=== PATIENT | male | born 1945 | race Caucasian/White ===

== ENCOUNTER → 2019-05-29 10:11 | Outpatient (BNVA) | payer OTHER, SELFPAY | PROVIDERS: Visit Provider Family Medicine | DX: I25.10 Atherosclerotic heart disease of native coronary artery without angina pectoris (principal); E03.9 Hypothyroidism, unspecified; N40.1 Benign prostatic hyperplasia with lower urinary tract symptoms; R39.11 Hesitancy of micturition; Z12.5 Encounter for screening for malignant neoplasm of prostate; I10 Essential (primary) hypertension; I63.89 Other cerebral infarction | CPT/HCPCS: 80061; 84153; 84439; 84443; 84481 ==

== ENCOUNTER → 2020-01-23 10:12 | Outpatient (BNVA) | payer OTHER, SELFPAY | PROVIDERS: Visit Provider Family Medicine | DX: I10 Essential (primary) hypertension (principal); N40.0 Benign prostatic hyperplasia without lower urinary tract symptoms; I25.10 Atherosclerotic heart disease of native coronary artery without angina pectoris; N40.1 Benign prostatic hyperplasia with lower urinary tract symptoms; E03.9 Hypothyroidism, unspecified; R39.11 Hesitancy of micturition | CPT/HCPCS: 80053; 84439; 84443; 84481 ==

== ENCOUNTER → 2020-09-18 11:53 | Outpatient (BNVA) | payer OTHER, SELFPAY | PROVIDERS: Visit Provider Family Medicine | DX: I10 Essential (primary) hypertension (principal); N40.0 Benign prostatic hyperplasia without lower urinary tract symptoms; I25.10 Atherosclerotic heart disease of native coronary artery without angina pectoris; I63.9 Cerebral infarction, unspecified; E03.9 Hypothyroidism, unspecified; N40.1 Benign prostatic hyperplasia with lower urinary tract symptoms; R39.11 Hesitancy of micturition | CPT/HCPCS: 80053; 80061; 84153; 84439; 84443; 84481 ==

== ENCOUNTER 2021-02-21 13:13 | Outpatient (CLI) | payer MEDICARE, OTHER, SELFPAY ==
--- NOTE | 2021-02-21 13:30 | USCV_ITS ---
Juan Manuel Sol Age: 75 Gender: M : 1945 Exam Date: 02/21/2021 13:28 Ordering Phys: Yarelis Hollingsworth MD ([email or web address]) Technologist: MELISSA [place]am [place] [facility] [place]: hx CVA 2004 (right hemiparesis). hx LEFT carotid stenting 2004. No DM. Never smoked. Risk Factors: hx CVA 2004 (right hemiparesis). hx LEFT carotid stenting 2004. No DM. Never smoked. Previous Vascular Surgery: hx LEFT carotid stenting 2004. Right Brachial BP: / Left Brachial BP: / Right Left Velocity (cm/s) Spectral Plaque Velocity (cm/s) Spectral Plaque Syst/Diast Broadening Syst/Diast Broadening 62.10/ 10.10 Min Homo Prox CCA 64.10 / 10.30 Min Homo 62.90/ 10.90 Min Homo Mid CCA 56.60 / 11.70 Min Hetro 66.00/ 9.30 Min Homo Distal CCA 36.80 / 11.20 Min STENT 82.00/ 19.70 Mod Homo Prox ICA 101.40/ 20.90 Mod STENT 70.90/ 21.40 Min Homo Mid ICA 95.90 / 15.40 Min Homo 56.80/ 17.00 Min Homo Distal ICA 76.10 / 17.60 Min Homo 136.70 Min Homo ECA 149.10 Mod Hetro 1.24 ICA/CCA 1.58 Antegrade Vertebral Antegrade 35.50/ 7.80 cm/s 53.00/ 12.00 cm/s Tri Subclavian Tri 81.20 76.90 FINDINGS Mild to moderate plaques of the left bifurcation. The stent in the proximal to mid segment of the artery appears to be patent with normal Doppler flow velocities. Mild to moderate plaques of the right bifurcation. Intimal thickening and scattered minimal plaques in the common carotid arteries bilaterally. Anterior flow in the vertebral arteries bilaterally. Myra/near normal Doppler flow velocities in the external carotid and subclavian arteries bilaterally CONCLUSIONS Mild to moderate plaques of the left bifurcation. The stent in the proximal to mid segment of the artery appears to be patent with normal Doppler flow velocities. Features suggesting less than 50% stenosis Mild to moderate plaques of the right bifurcation, suggesting less than 50% stenosis. No significant stenosis in the external carotid, vertebral or subclavian arteries, based on the Doppler velocities. No similar previous studies are available for comparison Dr Chris Chambers MD [facility] (Electronically Signed) Final Date: 24 February 2021 12:53 S
== END 2021-02-21 13:14 | disposition home or self-care (01) ==
LOC: RAD 13:15
PROVIDERS: PCP Family Medicine; Visit Provider Internal Medicine Cardiovascular Disease
DX: Z95.828 Presence of other vascular implants and grafts (principal); R55 Syncope and collapse; I63.89 Other cerebral infarction; I65.23 Occlusion and stenosis of bilateral carotid arteries
CPT/HCPCS: 93880

== ENCOUNTER → 2021-04-10 11:01 | Outpatient (BNVA) | payer MEDICARE, SELFPAY | PROVIDERS: PCP Family Medicine; Visit Provider Family Medicine | DX: I10 Essential (primary) hypertension (principal); I25.10 Atherosclerotic heart disease of native coronary artery without angina pectoris; N40.0 Benign prostatic hyperplasia without lower urinary tract symptoms; E03.9 Hypothyroidism, unspecified; E78.1 Pure hyperglyceridemia; Z12.5 Encounter for screening for malignant neoplasm of prostate; N40.1 Benign prostatic hyperplasia with lower urinary tract symptoms; R39.11 Hesitancy of micturition | CPT/HCPCS: 80053; 80061; 84153; 84439; 84443; 84481 ==

== ENCOUNTER → 2021-06-23 14:28 | Outpatient (BNVA) | payer MEDICARE, SELFPAY | PROVIDERS: PCP Family Medicine; Visit Provider Nurse Practitioner Family | DX: I25.10 Atherosclerotic heart disease of native coronary artery without angina pectoris (principal); I10 Essential (primary) hypertension; R00.1 Bradycardia, unspecified; Z95.5 Presence of coronary angioplasty implant and graft | CPT/HCPCS: 99214 ==

== ENCOUNTER → 2022-01-08 10:05 | Outpatient (BNVA) | payer MEDICARE, SELFPAY | PROVIDERS: PCP Family Medicine; Visit Provider Family Medicine | DX: C44.209 Unspecified malignant neoplasm of skin of left ear and external auricular canal (principal) | CPT/HCPCS: 88304 ==

== ENCOUNTER → 2022-01-09 09:09 | Outpatient (BNVA) | payer MEDICARE, SELFPAY | PROVIDERS: PCP Family Medicine; Visit Provider Internal Medicine Cardiovascular Disease | DX: I10 Essential (primary) hypertension (principal); E78.1 Pure hyperglyceridemia; Z95.828 Presence of other vascular implants and grafts; E03.9 Hypothyroidism, unspecified; Z86.73 Personal history of transient ischemic attack (TIA), and cerebral infarction without residual deficits | CPT/HCPCS: 99214 ==

== ENCOUNTER 2022-03-12 17:01 | Outpatient (CLI) | payer MEDICARE, SELFPAY ==
--- NOTE | 2022-03-12 17:15 | USCV_ITS ---
Juan Manuel Sol Age: 76 Gender: M : 1945 Exam Date: 03/12/2022 17:13 Ordering Phys: Yarelis Hollingsworth MD ([email or web address]) Technologist: EVA [place] [facility] [place]: Stenosis Risk Factors: Previous Vascular Surgery: Right Brachial BP: / Left Brachial BP: / Right Left Velocity (cm/s) Spectral Plaque Velocity (cm/s) Spectral Plaque Syst/Diast Broadening Syst/Diast Broadening 59.20/ 12.50 Prox CCA 67.70 / 15.80 65.70/ 17.10 Mid CCA 57.80 / 15.80 61.10/ 13.80 Distal CCA 44.30 / 17.10 67.50/ 18.40 Prox ICA 60.60 / 8.50 90.10/ 21.80 Mid ICA 105.80/ 15.40 83.90/ 20.20 Distal ICA 86.30 / 16.20 133.40 ECA 91.40 1.37 ICA/CCA 1.56 Vertebral 34.00/ 10.30 cm/s 52.80/ 11.50 cm/s Subclavian 78.90 125.7 0 FINDINGS Comparison:. 02/21/21. Mild scattered calcified plaque and intimal thickening throughout the common carotid arteries and extending through the bifurcation. Left ICA stent is patent. No progression of stenosis or plaque. Antegrade vertebral arteries. CONCLUSIONS Bilateral ICA stenosis less than 50%. Mild scattered atherosclerotic plaque. Patent left ICA stent. Dr. Azalia Hernandez DO (Electronically Signed) Final Date: 13 March 2022 07:42 S
== END 2022-03-12 17:02 | disposition home or self-care (01) ==
LOC: RAD 17:02
PROVIDERS: PCP Family Medicine; Visit Provider Internal Medicine Cardiovascular Disease
DX: I65.23 Occlusion and stenosis of bilateral carotid arteries (principal); I63.89 Other cerebral infarction; Z95.5 Presence of coronary angioplasty implant and graft
CPT/HCPCS: 93880

== ENCOUNTER → 2022-03-16 09:45 | Outpatient (BNVA) | payer MEDICARE, SELFPAY | PROVIDERS: PCP Family Medicine; Visit Provider Family Medicine | DX: I10 Essential (primary) hypertension (principal); I25.10 Atherosclerotic heart disease of native coronary artery without angina pectoris; I63.9 Cerebral infarction, unspecified; N40.0 Benign prostatic hyperplasia without lower urinary tract symptoms; E03.9 Hypothyroidism, unspecified; E78.1 Pure hyperglyceridemia; Z12.5 Encounter for screening for malignant neoplasm of prostate; R73.9 Hyperglycemia, unspecified; Z13.1 Encounter for screening for diabetes mellitus; N40.1 Benign prostatic hyperplasia with lower urinary tract symptoms; R39.11 Hesitancy of micturition | CPT/HCPCS: 80053; 80061; 83036; 84443; G0103 ==

== ENCOUNTER → 2022-05-25 14:40 | Outpatient (BNVA) | payer MEDICARE, SELFPAY | PROVIDERS: PCP Family Medicine; Visit Provider Family Medicine | DX: M25.521 Pain in right elbow (principal) | CPT/HCPCS: 73080 ==

== ENCOUNTER → 2022-10-09 08:00 | Outpatient (BNVA) | payer MEDICARE, SELFPAY | PROVIDERS: PCP Family Medicine; Visit Provider Nurse Practitioner Family | DX: L57.0 Actinic keratosis (principal); D22.5 Melanocytic nevi of trunk; L81.4 Other melanin hyperpigmentation; L57.8 Other skin changes due to chronic exposure to nonionizing radiation; Z85.828 Personal history of other malignant neoplasm of skin | CPT/HCPCS: 17000; 17003; 99213 ==

== ENCOUNTER → 2023-03-25 12:17 | Outpatient (BNVA) | payer MEDICARE, SELFPAY | PROVIDERS: PCP Family Medicine; Visit Provider Internal Medicine Cardiovascular Disease | DX: I25.10 Atherosclerotic heart disease of native coronary artery without angina pectoris (principal); I10 Essential (primary) hypertension; R00.1 Bradycardia, unspecified; E78.1 Pure hyperglyceridemia; Z95.828 Presence of other vascular implants and grafts; Z86.73 Personal history of transient ischemic attack (TIA), and cerebral infarction without residual deficits | CPT/HCPCS: 99214 ==

== ENCOUNTER → 2023-03-30 09:58 | Outpatient (BNVA) | payer MEDICARE, SELFPAY | PROVIDERS: PCP Family Medicine; Visit Provider Family Medicine | DX: I10 Essential (primary) hypertension (principal); N40.0 Benign prostatic hyperplasia without lower urinary tract symptoms; E03.9 Hypothyroidism, unspecified; N40.1 Benign prostatic hyperplasia with lower urinary tract symptoms; R39.11 Hesitancy of micturition; Z12.5 Encounter for screening for malignant neoplasm of prostate | CPT/HCPCS: 80053; 80061; 83721; 84153; 84443 ==

== ENCOUNTER → 2024-03-02 10:16 | Outpatient (BNVA) | payer MEDICARE, SELFPAY | PROVIDERS: PCP Family Medicine; Visit Provider Family Medicine | DX: I10 Essential (primary) hypertension (principal); I25.10 Atherosclerotic heart disease of native coronary artery without angina pectoris; E03.9 Hypothyroidism, unspecified | CPT/HCPCS: 80053; 80061; 84443 ==

== ENCOUNTER → 2024-03-23 15:15 | Outpatient (BNVA) | payer MEDICARE, SELFPAY | PROVIDERS: PCP Family Medicine; Visit Provider Internal Medicine Cardiovascular Disease | DX: R01.1 Cardiac murmur, unspecified (principal); I10 Essential (primary) hypertension; Z95.828 Presence of other vascular implants and grafts | CPT/HCPCS: 99204 ==

== ENCOUNTER → 2024-04-25 09:08 | Outpatient (BNVA) | payer MEDICARE, SELFPAY | PROVIDERS: PCP Family Medicine; Visit Provider Family Medicine | DX: Z13.1 Encounter for screening for diabetes mellitus (principal); R73.9 Hyperglycemia, unspecified | CPT/HCPCS: 83036 ==

== ENCOUNTER 2024-05-16 08:26 | Outpatient (CLI) | payer MEDICARE, SELFPAY ==
--- NOTE | 2024-05-16 13:30 | USCV_ITS ---
Juan Manuel Sol Age: 78 Gender: M : 1945 Exam Date: 05/16/2024 08:55 Ordering Phys: Lorenzo Mcdonough MD ([email or web address]) Technologist: Exam Location: [facility] – [place] Indication: mumur cp BP: 130 / 70 HR: 79 Rhythm: Sinus Technical Quality: Adequate MEASUREMENTS (Male / Female) Normal Values 2D ECHO LV Diastolic Diameter PLAX 4.0 cm 4.2 - 5.9 / 3.9 - 5.3 cm IVS Diastolic Thickness 1.3 cm 0.6 - 1.0 / 0.6 - 0.9 cm IVS Systolic Thickness 1.6 cm LVPW Diastolic Thickness 1.3 cm 0.6 - 1.0 / 0.6 - 0.9 cm LVPW Systolic Thickness 1.5 cm LVOT Diameter 2.1 cm LV Ejection Fraction 2D Teich 64.6 % LV Ejection Fraction MOD 4C 75.6 % LV Ejection Fraction MOD 2C 67.2 % LV Ejection Fraction 2C AL 69.9 % LA Diameter 3.3 cm RA Systolic Volume 4C AL 32.6 ml RA Systolic Volume 4C MOD 31.9 ml LA Sys Volume AL 38.0 cm cubed LA Sys Volume Index AL 19.5 cm cubed/m squared Aorta at Sinotubular Diameter 3.3 cm IVC Diameter 1.9 cm M-MODE LA Ao Ratio MM 1.4 AV Cusp Separation MM 0.9 cm DOPPLER AV Peak Velocity 269.0 cm/s LVOT Peak Velocity 82.0 cm/s AV Area Cont Eq vti 1.1 cm squared AV Area Cont Eq pk 1.0 cm squared MV Peak Velocity 126.0 cm/s MV Area PHT 2.8 cm squared Mitral E to A Ratio 0.7 TV Peak Velocity 225.0 cm/s TR Peak Velocity 265.0 cm/s TR Peak Gradient 28.1 mmHg TV Peak E Velocity 90.0 cm/s PV Peak Velocity 165.0 cm/s FINDINGS Left Ventricle Normal left ventricular size, systolic function and wall thickness, with no regional wall motion abnormalities. Left ventricular ejection fraction is estimated at 60 %. Grade I/IV diastolic dysfunction (abnormal relaxation filling pattern), normal to mildly elevated filling pressures. Right Ventricle The right ventricle is normal in size and function. Right Atrium The right atrium is normal in size. Left Atrium The left atrium is normal in size. Mitral Valve Moderately thickened mitral valve. No mitral valve stenosis. Trace mitral valve regurgitation. Aortic Valve Moderate aortic valve calcification. No aortic valve stenosis. Trace aortic valve regurgitation. Tricuspid Valve Structurally normal tricuspid valve without significant stenosis or regurgitation. Pulmonary artery systolic pressure is normal. Pulmonic Valve Structurally normal pulmonic valve without significant stenosis. There is no pulmonic regurgitation. Pericardium Normal pericardium without effusion. Aorta Normal ascending aorta dimension. IVC The inferior vena cava appears normal. CONCLUSIONS Normal left ventricular size, systolic function and wall thickness, with no regional wall motion abnormalities. Left ventricular ejection fraction is estimated at 60 %. Grade I/IV diastolic dysfunction (abnormal relaxation filling pattern), normal to mildly elevated filling pressures. No significant valve abnormalities. There is no pericardial effusion. Right atrial pressure is around 5 mm of mercury. Lorenzo Mcdonough MD (Electronically Signed) Final Date: 19 May 2024 21:18 S
== END 2024-05-16 08:27 | disposition home or self-care (01) ==
PROVIDERS: PCP Family Medicine; Visit Provider Internal Medicine Cardiovascular Disease
DX: I35.0 Nonrheumatic aortic (valve) stenosis (principal)
CPT/HCPCS: 93306

== ENCOUNTER → 2024-09-26 09:58 | Outpatient (BNVA) | payer MEDICARE, SELFPAY | PROVIDERS: PCP Family Medicine; Visit Provider Internal Medicine Cardiovascular Disease | DX: R00.1 Bradycardia, unspecified (principal); I10 Essential (primary) hypertension; E78.5 Hyperlipidemia, unspecified; I35.8 Other nonrheumatic aortic valve disorders; I35.1 Nonrheumatic aortic (valve) insufficiency; Z95.5 Presence of coronary angioplasty implant and graft; Z86.73 Personal history of transient ischemic attack (TIA), and cerebral infarction without residual deficits; Z79.02 Long term (current) use of antithrombotics/antiplatelets | CPT/HCPCS: 99214 ==